=== PATIENT | female | born 1945 | race Caucasian/White ===

== ENCOUNTER 2017-12-23 13:42 | Observation (INO) | payer MEDICARE, MEDICAID, SELFPAY ==
[2017-12-23 13:43] VITALS: BP 183/82; PULSE 76; RESP 14; TEMP 36.6; O2SAT 97; BMI 35.9
--- NOTE | 2017-12-23 14:06 | RAD_ITS ---
STUDY: X-RAY - ACUTE ABDOMINAL SERIES REASON FOR EXAM: Female, 72 years old. NAUSEA/VOMITING X SEVERAL DAYS, ? SBO TECHNIQUE: Single view of the chest. Supine, and erect view(s) of the abdomen were obtained. COMPARISON: CT January 09, 2014 FINDINGS: There is a left midlung field calcified granuloma. The lungs are hyperexpanded. There is mild cardiac megaly. Normal mediastinum and marlo. Normal visualized pulmonary arteries. Normal visualized aortic arch and descending thoracic aorta. There is a non-specific bowel gas pattern. The soft tissue structures of the abdomen and pelvis are unremarkable. There are diffuse degenerative changes of the visualized lumbar spine. RAD/Acute Abdomen Inc Chest IMPRESSION: No demonstrated bowel obstruction. Electronically Signed: Dannielle Batista MD at 15:33 EDT , Service support ,
[2017-12-23] MEDS: 0.9% Normal Saline 1,000 ML 1000 ML IV (14:32)
[2017-12-23] MEDS: Ondansetron 4 MG/2 ML Vial IV (14:32)
[2017-12-23 15:01] LABS: Absolute Neutrophil Count 9.4 X10^3/uL (2.0-7.7); Basophil# 0.03 X10^3/uL; Basophil% 0.2 % (0-1); Hematocrit 36.6 % (37-47); Hemoglobin 13.3 g/dl (12.0-15.0); Lymphocyte % 22.3 % (19-41); Mean Corp Hgb Conc 36.3 g/gl (32-36); Mean Corpuscular Hgb 30.4 pg (27.0-32.0); Mean Corpuscular Volume 83.6 fL (81-99); Mean Platelet Vol. 11.4 fl (6.2-12.0); Monocyte# 0.86 X10^3/uL; Monocyte% 6.4 % (0-10); Neutrophil # 9.44 X10^3/uL (2.7-7.7); Neutrophil % 70.3 % (47-70); POSITIVE COUNT NO; POSITIVE DIFFERENTIAL NO; POSITIVE MORPHOLOGY NO; Platelet Count 214 K/mm3 (150-450); RBC Distribution Width CV 11.8 % (11.6-14.6); RBC Distribution Width SD 35.8 fl (35.1-43.9); Red Blood Count 4.38 M/mm3 (4.2-5.4); White Blood Count 13.4 K/mm3 (4.4-11.0)
[2017-12-23 15:07] LABS: AST(SGOT) 35 U/L (15-37); Alanine Aminotransfer ALT/SGPT 49 U/L (13-56); Albumin, Serum 3.6 g/dL (3.2-5.0); Alkaline Phosphatase 50 U/L (45-117); Anion Gap 9 (5-15); BUN 13 mg/dL (7-18); Bilirubin, Direct 0.14 mg/dL (0.00-0.30); Chloride 86 mmol/L (98-107); Creatinine, Serum 0.93 mg/dL (0.55-1.02); EST Glomerular Filtration Rate 63 mL/min (>60); Est Glom Filt Rate - Afr Amer 76 mL/min (>60); Estimated Creatinine Clearance 45.83 ml/min; Globulin 4.1 g/dL (2.2-4.2); Glucose 128 mg/dL (74-106); Lipase 210 U/L (73-393); Potassium 3.5 mmol/L (3.5-5.1); Protein, Total 7.7 g/dL (6.4-8.2); Sodium Level 121 mmol/L (136-145)
--- NOTE | 2017-12-23 15:43 | ED.DCSUM_ITS ---
- ER Visit Summary Date of Service: 12/23/17 Chief Complaint: Vomiting History of Present Illness: The patient is a [address] Kaur. She reports that she saw Dr. Haddad yesterday and was diagnosed with a urinary tract infection. She was placed on Levaquin. She took a first dose last night and has been vomiting ever since. She reports that she is vomited approximately 10 times. No blood or emesis. She reports that she feels bloated, but denies abdominal pain. She reports her last bowel movements today. She is passing a small amount of flatus. She denies any melena or hematochezia. She does complain of dysuria, frequency, subjective fever and chills. Physical Examination: Vitals: Stable. Afebrile. General: Well-nourished and well-developed. Head: Normocephalic atraumatic. Neck: Supple, no lymphadenopathy. No JVD. Nontender. Cardiovascular: Regular rate and rhythm. No murmurs. Respiratory: No respiratory distress. Clear to auscultation bilaterally. Abdominal: Soft, mild diffuse tenderness to palpation, nondistended, hypoactive bowel sounds. No guarding, rebound, or peritoneal signs. Back: Nontender. Extremities: Nontender, no edema. Skin: Normal color, no rash. Neurologic: Alert and oriented ?3. Cranial nerves II through XII are intact. Normal strength and sensation. Psych: Depressed affect. Test Results: CBC is marked for white count 13.4 hematocrit 36.6. Chem-7 more for sodium 121, chloride of 86, glucose 128. LFTs are normal. Lipase is normal. Three-view of the abdomen shows a nonspecific bowel gas pattern with no obstruction. Emergency Department Course and Treatment: We are still awaiting a urine sample. The patient was treated with morphine and Zofran IV. She has not vomited since being here. Treatment Plan: Patient needs to be admitted for her hyponatremia. She also needs to be evaluated to see if she truly does have a UTI. She will be discussed with the hospitalist for admission. Disposition: Admitted in improved condition. Impression: 1. Hyponatremia. 2. Vomiting. This note was generated with [employer] software. It may contain incorrect words, spelling, and punctuation that were not noted in review of the chart prior to signing ED Disposition - Plan for ED Patient: Chief Complaint: General Illness Referrals: Gurwinder Powell MD [Primary Care Provider] -
--- NOTE | 2017-12-23 15:44 | NURSING ---
DR JARVIS FOR DR SHANE
--- NOTE | 2017-12-23 15:48 | NURSING ---
MED SURG OBS NAUSEA, VOMITING, HYPONATREMIA PAINTSIL
[2017-12-23 15:59] LABS: Bacteria 0 SEEN /hpf (None Seen); Mucous, Urine 0 SEEN /hpf (<or=2+)
[2017-12-23] MEDS: proMETHazine 25 MG/ML Syringe 6.25 MG IV ×2 (16:01→22:56)
[2017-12-23 16:07] LABS: Color, Urine Yellow (Yellow); Glucose, Dipstick Normal (Normal); Ketone-Dipstick 5 mg/dl (Negative); Leukocyte Esterase-Dipstick Negative /ul (Negative); Nitrite-Dipstick Negative (Negative); Occult Blood-Urine 25 /ul (Negative); Protein-Dipstick 30 mg/dl (Negative); Specific Gravity, Urine 1.015 (1.002-1.030); Urine Bilirubin Dipstick Negative (Negative); Urine Clarity Clear (Clear); Urine Urobilinogen Normal (Normal); Urine pH 6.5 (5.0 - 8.0)
[2017-12-23 16:21] VITALS: BP 157/73; PULSE 69; PULSE 70; RESP 17; RESP 18; TEMP 37; O2SAT 97; O2SAT 98
[2017-12-23 16:23] LABS: Amorphous Sediment 1+ URATE; Red Blood Cells-Urine 0-5 SEEN /hpf (0-5); Squamous Epithelial Cells - UA 0-5 SEEN /hpf (5-10); White Blood Cells 0 SEEN /hpf (0-5)
--- NOTE | 2017-12-23 16:38 | PCM.HP.STD ---
<Erick Cuenca - Last Filed: 12/23/17 16:38> Problem List (1) Gastroenteritis Status: Acute (2) Hyponatremia Status: Chronic (3) HTN (hypertension) Status: Chronic (4) Hypothyroidism Status: Chronic (5) Obesity Status: Chronic History of Present Illness Date of Admission: 12/23/17 Chief Complaint: Nausea, vomiting, and diarrhea The patient is a 72 year old F who presented to the ER with intractable nausea and vomiting for four days. She has progressively worsened. She called EMS two days ago who came to check on her and advised her to go to the ER if she became worse. Yesterday she went to see her PCP who told her she had a UTI and she was started on levaquin. She became more nauseous with this however. She has had urinary complaints including increased frequency, dysuria, urgency, hesitancy, and incomplete emptying of her bladder. She also complains of dizziness today. She denies CP, denies LU. She has had diarrhea about 3-4 x per day as well. No fevers or chills. She tried taking zofran PO at home but felt this made her worse as well. In the ER she has an increased WBC count, afebrile, and negative adominal film. [] Past Medical History Past Medical History (Chronic Problems): Chronic Problems Hyponatremia (Chronic) HTN (hypertension) (Chronic) Hypothyroidism (Chronic) Obesity (Chronic) Allergies erythromycin base [Erythromycin Base] Adverse Reaction (Verified 12/23/17 13:45) Vomiting propoxyphene HCl [From Darvon] Adverse Reaction (Verified 12/23/17 13:45) Vomiting sulfamethoxazole [From Bactrim] Adverse Reaction (Verified 12/23/17 13:45) Vomiting tramadol Adverse Reaction (Verified 12/23/17 13:45) Vomiting trimethoprim [From Bactrim] Adverse Reaction (Verified 12/23/17 13:45) Vomiting Home Medications: Ambulatory Orders Medication Instructions Recorded Metoprolol Tartrate [Metoprolol 50 mg PO DAILY 01/09/14 Tartrate] Ranitidine [Zantac] 150 mg PO BID 01/09/14 Albuterol IH (ProAir) [Proair Hfa 2 puff INHALATION Q4H PRN PRN 12/23/17 (SP)Vent Pts] Cetirizine HCl [Zyrtec] 10 mg PO DAILY 12/23/17 Diclofenac [Voltaren] 75 mg PO BIDCM 12/23/17 Fluticasone 0.05% [Flonase Nasal 2 spray NASAL DAILY 12/23/17 [place]] Fluticasone/Salmeterol [Advair 1 puff INHALATION BID 12/23/17 250/50 Mcg Diskus] Hydrochlorothiazide 12.5 mg PO DAILY 12/23/17 Levofloxacin [Levaquin] 500 mg PO DAILY 12/23/17 Levothyroxine [Synthroid] 75 mcg PO DAILY 12/23/17 Losartan Potassium [Cozaar] 50 mg PO DAILY 12/23/17 Ondansetron HCl [Zofran] 4 mg PO Q8H PRN 12/23/17 Oxybutynin [Ditropan] 5 mg PO QHS PRN 12/23/17 Triamcinolone 0.025% Cream 1 applicatio TOPICAL BID 12/23/17 [Kenalog] Surgical History: cholecystectomy Psychiatric History: 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 Denies: Chills, Fever, Weight Change HEENT: Denies: Head Aches, Sinus Congestion, Sinus Drainage Cardiovascular: Denies: Chest Pain, Palpitations Respiratory: Denies: Cough, Shortness of breath at rest, Sputum production Gastrointestinal: Denies: Abdominal Pain, Nausea, Vomiting Genitourinary: Reports: Dysuria, Frequency, Hesitancy, Urgency Musculoskeletal: Denies: Joint Pain, Joint Tenderness Skin: Denies: Rash, Wounds Neurological: Denies: Numbness, Tingling, Focal weakness Psychiatric: Denies: Anxiety, Depression, Homicidal Ideations, Suicidal Ideations Hematologic/ Lymphatic: Denies: Easy Bruising, Easy Bleeding VTE Information - Inpt Only VTE Present on Admission: No VTE Mechan Device Prophylaxis: SCD's VTE Pharm Prophylaxis ordered?: Yes Patient Problems: Active and Suspected Problems Gastroenteritis (Acute) - Physical Exam General: Alert, Oriented x3, Cooperative HEENT: Atraumatic, PERRLA, EOMI, Normocephalic Neck: Supple, No JVD, Negative Carotid Bruits Lungs: Clear to auscultation, Normal air movement Cardiovascular: Regular rate, No murmurs Abdomen: Bowel Sounds Present, Soft, Tender - mild tenderness to palpation diffusely. Extremities: No edema, Capillary Refill Less than 3 Seconds Skin: No rashes, No breakdown Musculoskeletal: No Tenderness to Palpation of Joints or Extremities Neurological: Cranial nerves II-XII grossly intact, - - resting tremor in head Psych/Mental Status: Normal Affect, Appropriate Vital Signs Temp Pulse Resp BP Pulse Ox 98.6 F 70 18 157/73 H 98 12/23/17 16:21 12/23/17 16:21 12/23/17 16:21 12/23/17 16:21 12/23/17 16:21 Oxygen Delivery Method Room Air Laboratory Tests Past 24 Hrs 12/23/17 15:52 Urine Color Yellow Urine Clarity Clear Urine pH 6.5 Ur Specific [place] 1.015 Urine Protein 30 H Urine Glucose (UA) Normal Urine Ketones 5 H Urine Occult Blood 25 H Urine Nitrite Negative Urine Bilirubin Negative Urine Urobilinogen Normal Ur Leukocyte Esterase Negative Urine RBC 0-5 SEEN Urine WBC 0 SEEN Ur Squamous Epith Cells 0-5 SEEN Amorphous Sediment 1+ URATE Urine Bacteria 0 SEEN Urine Mucus 0 SEEN Assessment/Plan Active and Suspected Problems Gastroenteritis (Acute) 1. Acute gastroenteritis - suspect viral. Supportive care, IV fluids, slowly advance diet. Abdominal film negative. Lipase neg. 2. Dysuria/Hesitancy/Increased nocturia/Frequency - Given her negative UA, I do not feel that she has a UTI and will defer abx therapy at this time. Her UA is unremarkable. Her Increased urinary symptoms are suspicious for a different underlying issue such as diabetes. Will monitor glucose with BMP and check A1C. 3. Hyponatremia - hold HCTZ. suspect 2/2 vomiting/diarrhea - suspect hypovolemic. Hydrate with normal saline. Consult nephrology. Urine studies ordered. Check thyroid studies. She has had this on prior labs, but not this severely and I am not sure of the circumstances at that time. 4. Obesity - nutrition consult. 5. HTN - poorly controlled, but she has been vomiting - trend and adjust medications as needed. HCTZ held. 6. Hypothyroid - continue synthroid, check TSH DVT ppx: lovenox This patient was seen by Erick Cuenca PA-C under the supervision of Dr. Phipps <[place] - Last Filed: 12/23/17 17:57> History of Present Illness The patient is a 72 year old F [] Past Medical History Allergies erythromycin base [Erythromycin Base] Adverse Reaction (Verified 12/23/17 13:45) Vomiting propoxyphene HCl [From Darvon] Adverse Reaction (Verified 12/23/17 13:45) Vomiting sulfamethoxazole [From Bactrim] Adverse Reaction (Verified 12/23/17 13:45) Vomiting tramadol Adverse Reaction (Verified 12/23/17 13:45) Vomiting trimethoprim [From Bactrim] Adverse Reaction (Verified 12/23/17 13:45) Vomiting - Physical Exam Vital Signs Temp Pulse Resp BP Pulse Ox 98.6 F 70 18 157/73 H 98 12/23/17 16:21 12/23/17 16:21 12/23/17 16:21 12/23/17 16:21 12/23/17 16:21 Oxygen Delivery Method Room Air Weight: 93.7 kg Body Mass Index (BMI) 35.4 Laboratory Tests Past 24 Hrs 12/23/17 15:52 Urine Color Yellow Urine Clarity Clear Urine pH 6.5 Ur Specific [place] 1.015 Urine Protein 30 H Urine Glucose (UA) Normal Urine Ketones 5 H Urine Occult Blood 25 H Urine Nitrite Negative Urine Bilirubin Negative Urine Urobilinogen Normal Ur Leukocyte Esterase Negative Urine RBC 0-5 SEEN Urine WBC 0 SEEN Ur Squamous Epith Cells 0-5 SEEN Amorphous Sediment 1+ URATE Urine Bacteria 0 SEEN Urine Mucus 0 SEEN Assessment/Plan Patient was seen and examined, has a feeling unwell ongoing for the past 4 days, has nausea and vomiting. History of hypertension on losartan and hydrochlorothiazide. Been feeling very weak associated with dizziness and no chest pain or palpitations or fever or chills. Admits to some dysuria with urgency and urinary frequency as well as nocturia. Seen by his primary care doctor and started on Levaquin. States that she could not continue because she had worsening of her nausea and vomiting. Denies any sick contact. She has had more than 4 bowel movements today Exam shows obese lady, looks very ill and weak, nauseous, pale, able to complete his sentences. Moderate dehydration was seen. Otherwise heart sounds 1 and 2 were present with no murmurs, and she was adequate bilaterally with no added sounds, abdomen was full but soft and non-tender to palpation and no palpable hepatosplenomegaly. Labs and images were reviewed; significant for almost normal UA, slight elevation in glucose, will get HbA1c to rule out diabetes, patient's hyponatremia appears to be acute on chronic, was 10/30/2013, unsure of what patient's sodium has been in between this time, will get records from his primary care doctor. We will also get a stool for enteric panel, [facility] observation Code Visit OBSV E&M: 11218 Initial observation care L3
[2017-12-23 16:47] VITALS: BMI 35.9
--- NOTE | 2017-12-23 16:48 | HP.PCM_ITS ---
<Erick Cuenca - Last Filed: 12/23/17 16:38> Problem List (1) Gastroenteritis Status: Acute (2) Hyponatremia Status: Chronic (3) HTN (hypertension) Status: Chronic (4) Hypothyroidism Status: Chronic (5) Obesity Status: Chronic History of Present Illness Date of Admission: 12/23/17 Chief Complaint: Nausea, vomiting, and diarrhea The patient is a 72 year old F who presented to the ER with intractable nausea and vomiting for four days. She has progressively worsened. She called EMS two days ago who came to check on her and advised her to go to the ER if she became worse. Yesterday she went to see her PCP who told her she had a UTI and she was started on levaquin. She became more nauseous with this however. She has had urinary complaints including increased frequency, dysuria, urgency, hesitancy, and incomplete emptying of her bladder. She also complains of dizziness today. She denies CP, denies LU. She has had diarrhea about 3-4 x per day as well. No fevers or chills. She tried taking zofran PO at home but felt this made her worse as well. In the ER she has an increased WBC count, afebrile, and negative adominal film. [] Past Medical History Past Medical History (Chronic Problems): Chronic Problems Hyponatremia (Chronic) HTN (hypertension) (Chronic) Hypothyroidism (Chronic) Obesity (Chronic) Allergies erythromycin base [Erythromycin Base] Adverse Reaction (Verified 12/23/17 13:45) Vomiting propoxyphene HCl [From Darvon] Adverse Reaction (Verified 12/23/17 13:45) Vomiting sulfamethoxazole [From Bactrim] Adverse Reaction (Verified 12/23/17 13:45) Vomiting tramadol Adverse Reaction (Verified 12/23/17 13:45) Vomiting trimethoprim [From Bactrim] Adverse Reaction (Verified 12/23/17 13:45) Vomiting Home Medications: Ambulatory Orders Medication Instructions Recorded Metoprolol Tartrate [Metoprolol 50 mg PO DAILY 01/09/14 Tartrate] Ranitidine [Zantac] 150 mg PO BID 01/09/14 Albuterol IH (ProAir) [Proair Hfa 2 puff INHALATION Q4H PRN PRN 12/23/17 (SP)Vent Pts] Cetirizine HCl [Zyrtec] 10 mg PO DAILY 12/23/17 Diclofenac [Voltaren] 75 mg PO BIDCM 12/23/17 Fluticasone 0.05% [Flonase Nasal 2 spray NASAL DAILY 12/23/17 [place]] Fluticasone/Salmeterol [Advair 1 puff INHALATION BID 12/23/17 250/50 Mcg Diskus] Hydrochlorothiazide 12.5 mg PO DAILY 12/23/17 Levofloxacin [Levaquin] 500 mg PO DAILY 12/23/17 Levothyroxine [Synthroid] 75 mcg PO DAILY 12/23/17 Losartan Potassium [Cozaar] 50 mg PO DAILY 12/23/17 Ondansetron HCl [Zofran] 4 mg PO Q8H PRN 12/23/17 Oxybutynin [Ditropan] 5 mg PO QHS PRN 12/23/17 Triamcinolone 0.025% Cream 1 applicatio TOPICAL BID 12/23/17 [Kenalog] Surgical History: cholecystectomy Psychiatric History: No pertinent psych hx 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 Denies: Chills, Fever, Weight Change HEENT: Denies: Head Aches, Sinus Congestion, Sinus Drainage Cardiovascular: Denies: Chest Pain, Palpitations Respiratory: Denies: Cough, Shortness of breath at rest, Sputum production Gastrointestinal: Denies: Abdominal Pain, Nausea, Vomiting Genitourinary: Reports: Dysuria, Frequency, Hesitancy, Urgency Musculoskeletal: Denies: Joint Pain, Joint Tenderness Skin: Denies: Rash, Wounds Neurological: Denies: Numbness, Tingling, Focal weakness Psychiatric: Denies: Anxiety, Depression, Homicidal Ideations, Suicidal Ideations Hematologic/ Lymphatic: Denies: Easy Bruising, Easy Bleeding VTE Information - Inpt Only VTE Present on Admission: No VTE Mechan Device Prophylaxis: SCD's VTE Pharm Prophylaxis ordered?: Yes Patient Problems: Active and Suspected Problems Gastroenteritis (Acute) - Physical Exam General: Alert, Oriented x3, Cooperative HEENT: Atraumatic, PERRLA, EOMI, Normocephalic Neck: Supple, No JVD, Negative Carotid Bruits Lungs: Clear to auscultation, Normal air movement Cardiovascular: Regular rate, No murmurs Abdomen: Bowel Sounds Present, Soft, Tender - mild tenderness to palpation diffusely. Extremities: No edema, Capillary Refill Less than 3 Seconds Skin: No rashes, No breakdown Musculoskeletal: No Tenderness to Palpation of Joints or Extremities Neurological: Cranial nerves II-XII grossly intact, - - resting tremor in head Psych/Mental Status: Normal Affect, Appropriate Vital Signs Temp Pulse Resp BP Pulse Ox 98.6 F 70 18 157/73 H 98 12/23/17 16:21 12/23/17 16:21 12/23/17 16:21 12/23/17 16:21 12/23/17 16:21 Oxygen Delivery Method Room Air Laboratory Tests Past 24 Hrs 12/23/17 15:52 Urine Color Yellow Urine Clarity Clear Urine pH 6.5 Ur Specific [place] 1.015 Urine Protein 30 H Urine Glucose (UA) Normal Urine Ketones 5 H Urine Occult Blood 25 H Urine Nitrite Negative Urine Bilirubin Negative Urine Urobilinogen Normal Ur Leukocyte Esterase Negative Urine RBC 0-5 SEEN Urine WBC 0 SEEN Ur Squamous Epith Cells 0-5 SEEN Amorphous Sediment 1+ URATE Urine Bacteria 0 SEEN Urine Mucus 0 SEEN Assessment/Plan Active and Suspected Problems Gastroenteritis (Acute) 1. Acute gastroenteritis - suspect viral. Supportive care, IV fluids, slowly advance diet. Abdominal film negative. Lipase neg. 2. Dysuria/Hesitancy/Increased nocturia/Frequency - Given her negative UA, I do not feel that she has a UTI and will defer abx therapy at this time. Her UA is unremarkable. Her Increased urinary symptoms are suspicious for a different underlying issue such as diabetes. Will monitor glucose with BMP and check A1C. 3. Hyponatremia - hold HCTZ. suspect 2/2 vomiting/diarrhea - suspect hypovolemic. Hydrate with normal saline. Consult nephrology. Urine studies ordered. Check thyroid studies. She has had this on prior labs, but not this severely and I am not sure of the circumstances at that time. 4. Obesity - nutrition consult. 5. HTN - poorly controlled, but she has been vomiting - trend and adjust medications as needed. HCTZ held. 6. Hypothyroid - continue synthroid, check TSH DVT ppx: lovenox This patient was seen by Erick Cuenca PA-C under the supervision of Dr. Phipps <[place] - Last Filed: 12/23/17 17:57> History of Present Illness The patient is a 72 year old F [] Past Medical History Allergies erythromycin base [Erythromycin Base] Adverse Reaction (Verified 12/23/17 13:45) Vomiting propoxyphene HCl [From Darvon] Adverse Reaction (Verified 12/23/17 13:45) Vomiting sulfamethoxazole [From Bactrim] Adverse Reaction (Verified 12/23/17 13:45) Vomiting tramadol Adverse Reaction (Verified 12/23/17 13:45) Vomiting trimethoprim [From Bactrim] Adverse Reaction (Verified 12/23/17 13:45) Vomiting - Physical Exam Vital Signs Temp Pulse Resp BP Pulse Ox 98.6 F 70 18 157/73 H 98 12/23/17 16:21 12/23/17 16:21 12/23/17 16:21 12/23/17 16:21 12/23/17 16:21 Oxygen Delivery Method Room Air Weight: 93.7 kg Body Mass Index (BMI) 35.4 Laboratory Tests Past 24 Hrs 12/23/17 15:52 Urine Color Yellow Urine Clarity Clear Urine pH 6.5 Ur Specific [place] 1.015 Urine Protein 30 H Urine Glucose (UA) Normal Urine Ketones 5 H Urine Occult Blood 25 H Urine Nitrite Negative Urine Bilirubin Negative Urine Urobilinogen Normal Ur Leukocyte Esterase Negative Urine RBC 0-5 SEEN Urine WBC 0 SEEN Ur Squamous Epith Cells 0-5 SEEN Amorphous Sediment 1+ URATE Urine Bacteria 0 SEEN Urine Mucus 0 SEEN Assessment/Plan Patient was seen and examined, has a feeling unwell ongoing for the past 4 days , has nausea and vomiting. History of hypertension on losartan and hydrochlorothiazide. Been feeling very weak associated with dizziness and no chest pain or palpitations or fever or chills. Admits to some dysuria with urgency and urinary frequency as well as nocturia. Seen by his primary care doctor and started on Levaquin. States that she could not continue because she had worsening of her nausea and vomiting. Denies any sick contact. She has had more than 4 bowel movements today Exam shows obese lady, looks very ill and weak, nauseous, pale, able to complete his sentences. Moderate dehydration was seen. Otherwise heart sounds 1 and 2 were present with no murmurs, and she was adequate bilaterally with no added sounds, abdomen was full but soft and non- tender to palpation and no palpable hepatosplenomegaly. Labs and images were reviewed; significant for almost normal UA, slight elevation in glucose, will get HbA1c to rule out diabetes, patient's hyponatremia appears to be acute on chronic, was 10/30/2013, unsure of what patient's sodium has been in between this time, will get records from his primary care doctor. We will also get a stool for enteric panel, [facility] Code Visit OBSV E&M: 11948 Initial observation care L3
[2017-12-23 17:33] VITALS: BMI 35.4
[2017-12-23 17:40] VITALS: BP 139/64; PULSE 64; RESP 16; TEMP 36.6; O2SAT 98
[2017-12-23 18:38] LABS: Urine Sodium 89 mmol/L (Not Establ.)
[2017-12-23 18:56] LABS: Thyroid Stim Hormone (TSH) 4.62 uIU/mL (0.358-3.74)
[2017-12-23 19:03] LABS: Hemoglobin A1c 5.8 % (4.2-6.3)
[2017-12-23] MEDS: Budesonide Respules 0.5 MG/2 ML AMPUL.NEB. INHALATION (20:01)
[2017-12-23] MEDS: Albuterol 2.5 MG/3 ML VIAL.NEB. INHALATION (20:01)
[2017-12-23 20:04] VITALS: PULSE 68; RESP 18
[2017-12-23 22:43] VITALS: BP 134/65; PULSE 67; RESP 16; TEMP 37.1; O2SAT 98
[2017-12-23] MEDS: Oxybutynin 5 MG Tablet PO (22:58)
[2017-12-23] MEDS: Heparin Injection 5,000 UNITS/ML Syringe 5000 UNITS SC (22:58)
[2017-12-24 01:12] LABS: Urine Sodium 21 mmol/L (Not Establ.)
[2017-12-24 01:29] LABS: Osmolality, Urine 110 mOsm/KG
[2017-12-24 04:29] VITALS: BP 139/70; PULSE 67; RESP 16; TEMP 36.8; O2SAT 99
[2017-12-24] MEDS: 0.9% Normal Saline 1,000 ML 100 ML IV (04:37)
[2017-12-24 06:34] LABS: Absolute Lymphocyte Count 3.46 X10^3/ul (0.83-4.51); Absolute Neutrophil Count 4.3 X10^3/uL (2.0-7.7); Basophil# 0.03 X10^3/uL; Basophil% 0.3 % (0-1); Eosinophil# 0.05 X10^3/uL; Eosinophils% 0.6 % (0-5); Hematocrit 36.6 % (37-47); Hemoglobin 13.1 g/dl (12.0-15.0); Lymphocyte # 3.46 X10^3/ul (4.0); Lymphocyte % 38.9 % (19-41); Mean Corp Hgb Conc 35.8 g/gl (32-36); Mean Corpuscular Hgb 30.4 pg (27.0-32.0); Mean Corpuscular Volume 84.9 fL (81-99); Mean Platelet Vol. 11.3 fl (6.2-12.0); Monocyte# 0.96 X10^3/uL; Monocyte% 10.8 % (0-10); Neutrophil # 4.33 X10^3/uL (2.7-7.7); Neutrophil % 48.7 % (47-70); Platelet Count 176 K/mm3 (150-450); RBC Distribution Width CV 12.1 % (11.6-14.6); RBC Distribution Width SD 36.8 fl (35.1-43.9); Red Blood Count 4.31 M/mm3 (4.2-5.4); White Blood Count 8.9 K/mm3 (4.4-11.0)
[2017-12-24 06:36] LABS: POSITIVE COUNT NO; POSITIVE DIFFERENTIAL NO; POSITIVE MORPHOLOGY NO
[2017-12-24] MEDS: Levothyroxine 75 MCG Tablet PO (06:41)
[2017-12-24 06:50] LABS: Anion Gap 10 (5-15); BUN 12 mg/dL (7-18); BUN/Creat Ratio 13.1 RATIO (10-20); Calcium,Total 8.3 mg/dL (8.5-10.1); Chloride 96 mmol/L (98-107); Creatinine, Serum 0.92 mg/dL (0.55-1.02); EST Glomerular Filtration Rate 64 mL/min (>60); Est Glom Filt Rate - Afr Amer 77 mL/min (>60); Estimated Creatinine Clearance 46.33 ml/min; Glucose 92 mg/dL (74-106); Potassium 3.3 mmol/L (3.5-5.1); Sodium Level 131 mmol/L (136-145)
[2017-12-24] MEDS: Albuterol 2.5 MG/3 ML VIAL.NEB. INHALATION ×2 (07:03→14:42)
[2017-12-24 07:04] VITALS: PULSE 80; RESP 20
[2017-12-24] MEDS: Budesonide Respules 0.5 MG/2 ML AMPUL.NEB. INHALATION (07:04)
[2017-12-24 08:45] VITALS: BP 142/89; PULSE 74; RESP 16; TEMP 37.2; O2SAT 97
[2017-12-24 09:03] VITALS: PULSE 74
[2017-12-24] MEDS: Losartan Potassium 50 MG Tablet PO (09:03)
[2017-12-24] MEDS: Famotidine 20 MG Tablet PO (09:03)
[2017-12-24] MEDS: Metoprolol Tartrate 50 MG Tablet PO (09:03)
[2017-12-24] MEDS: Fluticasone 0.05% 1 SPRAY NASAL.SRY 2 SPRAY NASAL (09:03)
[2017-12-24] MEDS: Heparin Injection 5,000 UNITS/ML Syringe 5000 UNITS SC (09:03)
[2017-12-24 10:47] LABS: T4 Free Direct 1.09 ng/dL (0.76-1.46)
--- NOTE | 2017-12-24 12:37 | PCM.CONS.R ---
Consultation - Renal 12/24/17 PCP/ Referring MD: Requesting physician: Mili Phipps Primary care physician: Gurwinder Powell Reason for Consultation:: hyponatremia - History of Present Illness History of Present Illness: The patient is a 72 year old F who presented to the ER with intractable nausea and vomiting for four days. She went to see her PCP who started her on Levaquin for UTI. Her nausea vomiting worsened with the antibiotic therapy which led to her ER visit. She denied any dysuria, frequency, urgency, hesitancy but did have stress urinary incontinence was chronic. She complained of dizziness, generalized weakness associated with her nausea and vomiting. She denied falling at home. She lives in apartment complex by herself and has Meals on Wheels. She denied any diarrhea or abdominal pain. She denied any chest pain or shortness of breath. She is feeling better today. She has a history of chronic tremors. Consulted for low sodium of 121 on admission improved to 131 with normal saline solution. Her hydrochlorothiazide was discontinued. She has been on a thiazide diuretic for many years for hypertension. She had a low sodium in the past at [address] of the abdomen in 2014 showed normal adrenal glands. She has hypothyroidism on hormonal replacement. She denies any history of malignancy. No recent chemistries available from the hospital. Will check [facility] records. Her WBC count is elevated on admission improved today. She denied any cough, fever or chills. - Allergies Allergies: Allergies erythromycin base [Erythromycin Base] Adverse Reaction (Verified 12/23/17 13:45) Vomiting propoxyphene HCl [From Darvon] Adverse Reaction (Verified 12/23/17 13:45) Vomiting sulfamethoxazole [From Bactrim] Adverse Reaction (Verified 12/23/17 13:45) Vomiting tramadol Adverse Reaction (Verified 12/23/17 13:45) Vomiting trimethoprim [From Bactrim] Adverse Reaction (Verified 12/23/17 13:45) Vomiting - Current Medications Current Medications: Current Medications Albuterol Sulfate (Ventolin Aerosols) 2.5 mg INHALATION [facility]6HWA[facility] Last Admin: 12/24/17 07:03 Dose: 2.5 mg Bisacodyl (Dulcolax) 5 mg PO DAILY PRN PRN PRN Reason: Constipation Budesonide (Pulmicort Aerosol) 0.5 mg INHALATION Q12H.[facility] Last Admin: 12/24/17 07:04 Dose: 0.5 mg Famotidine (Pepcid) 20 mg PO DAILY [facility] Last Admin: 12/24/17 09:03 Dose: 20 mg Fluticasone Propionate (Flonase Nasal [place]) 2 spray NASAL DAILY [facility] Last Admin: 12/24/17 09:03 Dose: 2 spray Heparin Sodium (Porcine) () 5,000 units SC BID [facility] Last Admin: 12/24/17 09:03 Dose: 5,000 units Levothyroxine Sodium (Synthroid) 75 mcg PO DAILY@0600 [facility] Last Admin: 12/24/17 06:41 Dose: 75 mcg Losartan Potassium (Cozaar) 50 mg PO DAILY [facility] Last Admin: 12/24/17 09:03 Dose: 50 mg Magnesium Hydroxide (Milk Of Magnesia) 30 ml PO DAILY PRN PRN PRN Reason: Constipation Metoprolol Tartrate (Lopressor (Beta Juanjose)) 50 mg PO DAILY [facility] Last Admin: 12/24/17 09:03 Dose: 50 mg Nutritional Formula (Lactose Free) (Ensure Clear) 120 ml PO 4X/DAY [facility] Last Admin: 12/24/17 09:07 Dose: 120 ml Ondansetron HCl (Zofran Odt) 4 mg PO Q8H PRN PRN Reason: NAUSEA/VOMITING Oxybutynin Chloride (Ditropan) 5 mg PO QHS [facility] Last Admin: 12/23/17 22:58 Dose: 5 mg Promethazine HCl (Phenergan Iv) 6.25 mg IV Q6H PRN PRN PRN Reason: NAUSEA/VOMITING Last Admin: 12/23/17 22:56 Dose: 6.25 mg Psyllium Hydrophilic Mucilloid (Metamucil) 1 packet PO DAILY PRN PRN PRN Reason: CONSTIPATION Sodium Chloride () 5 - 30 ml IV UD PRN PRN Reason: SALINE FLUSH - Past Medical History Past Medical History (Chronic Problems): Chronic Problems Hyponatremia (Chronic) HTN (hypertension) (Chronic) Hypothyroidism (Chronic) Obesity (Chronic) - Past Surgical History Surgical History: cholecystectomy - Social History Smoking Status: Never smoker Alcohol: None Drugs: None - Family History Maternal History Items: No pertinent history Paternal History Items: No pertinent history Review of Systems Constitutional: Reports: Weakness, Fatigue. Denies: Anorexia Eyes: Denies: Blurred vision HEENT: Denies: Head Aches, Sore Throat Cardiovascular: Denies: Chest Pain, Edema Respiratory: Denies: Cough, Shortness of Breath Gastrointestinal: Reports: Diarrhea, Nausea, Vomiting. Denies: Abdominal Pain, Constipation Genitourinary: Reports: Incontinence - Chronic. Denies: Dysuria, Frequency, Hematuria Musculoskeletal: Denies: Back Pain, Muscle pain Skin: Denies: Rash Neurological: Reports: Balance problems, Tremor. Denies: Seizures Psychiatric: Denies: Anxiety, Depression Hematologic/ Lymphatic: Denies: Anemia Patient Problems: Active and Suspected Problems Gastroenteritis (Acute) - Physical Exam General: Alert, Oriented x3, Cooperative, No apparent distress HEENT: PERRLA, EOMI Oral: Moist Mucosa Neck: Supple Lungs: Clear to auscultation Cardiovascular: Regular rate Abdomen: Bowel Sounds Present, Soft, Non Tender, Non-Distended, Obese Extremities: No edema Skin: No rashes Musculoskeletal: No Muscle Wasting Neurological: Cranial nerves II-XII grossly intact, - - Tremor at rest Psych/Mental Status: Normal Affect, Appropriate, Alert and oriented to time, place, person, mood and affect Vital Signs Temp Pulse Resp BP Pulse Ox 99.0 F 74 16 142/89 H 97 12/24/17 08:45 12/24/17 09:03 12/24/17 08:45 12/24/17 08:45 12/24/17 08:45 Oxygen Delivery Method Room Air Weight: 93.7 kg Body Mass Index (BMI) 35.4 Intake and Output for Last 24 Hours 12/22/17 12/23/17 12/24/17 23:59 23:59 23:59 Intake Total 1009 / 1009 Output Total 200 / 200 Balance 809 / 809 Laboratory Tests Past 24 Hrs 12/23/17 12/23/17 12/23/17 15:52 15:52 15:52 WBC RBC Hgb Hct MCV MCH MCHC RDW RDW Differential Plt Count MPV Immature Gran % (Auto) Neut % (Auto) Lymph % (Auto) [place] % (Auto) Eos % (Auto) Baso % (Auto) Absolute Neuts (auto) Absolute Lymphs (auto) Total Counted Sodium Potassium Chloride Carbon Dioxide Anion Gap BUN Creatinine Estim Creat Clear Calc Est GFR (MDRD) Af Amer Est GFR (MDRD) Non-Af BUN/Creatinine Ratio Glucose Calcium Free T4 Urine Color Yellow Urine Clarity Clear Urine pH 6.5 Ur Specific [place] 1.015 Urine Protein 30 H Urine Glucose (UA) Normal Urine Ketones 5 H Urine Occult Blood 25 H Urine Nitrite Negative Urine Bilirubin Negative Urine Urobilinogen Normal Ur Leukocyte Esterase Negative Urine RBC 0-5 SEEN Urine WBC 0 SEEN Ur Squamous Epith Cells 0-5 SEEN Amorphous Sediment 1+ URATE Urine Bacteria 0 SEEN Urine Mucus 0 SEEN Urine Osmolality Ur Random Sodium 89 Urine Creatinine 71.40 12/24/17 12/24/17 12/24/17 00:57 00:57 05:48 WBC 8.9 RBC 4.31 Hgb 13.1 Hct 36.6 L MCV 84.9 MCH 30.4 MCHC 35.8 RDW 12.1 RDW Differential 36.8 Plt Count 176 MPV 11.3 Immature Gran % (Auto) 0.700 Neut % (Auto) 48.7 Lymph % (Auto) 38.9 [place] % (Auto) 10.8 H Eos % (Auto) 0.6 Baso % (Auto) 0.3 Absolute Neuts (auto) 4.3 Absolute Lymphs (auto) 3.46 Total Counted Not Reportable Sodium Potassium Chloride Carbon Dioxide Anion Gap BUN Creatinine Estim Creat Clear Calc Est GFR (MDRD) Af Amer Est GFR (MDRD) Non-Af BUN/Creatinine Ratio Glucose Calcium Free T4 Urine Color Urine Clarity Urine pH Ur Specific [place] Urine Protein Urine Glucose (UA) Urine Ketones Urine Occult Blood Urine Nitrite Urine Bilirubin Urine Urobilinogen Ur Leukocyte Esterase Urine RBC Urine WBC Ur Squamous Epith Cells Amorphous Sediment Urine Bacteria Urine Mucus Urine Osmolality 110 Ur Random Sodium 21 Urine Creatinine 12/24/17 12/24/17 05:48 05:48 WBC RBC Hgb Hct MCV MCH MCHC RDW RDW Differential Plt Count MPV Immature Gran % (Auto) Neut % (Auto) Lymph % (Auto) [place] % (Auto) Eos % (Auto) Baso % (Auto) Absolute Neuts (auto) Absolute Lymphs (auto) Total Counted Sodium 131 L Potassium 3.3 L Chloride 96 L Carbon Dioxide 25.0 Anion Gap 10 BUN 12 Creatinine 0.92 Estim Creat Clear Calc 46.33 Est GFR (MDRD) Af Amer 77 Est GFR (MDRD) Non-Af 64 BUN/Creatinine Ratio 13.1 Glucose 92 Calcium 8.3 L Free T4 1.09 Urine Color Urine Clarity Urine pH Ur Specific [place] Urine Protein Urine Glucose (UA) Urine Ketones Urine Occult Blood Urine Nitrite Urine Bilirubin Urine Urobilinogen Ur Leukocyte Esterase Urine RBC Urine WBC Ur Squamous Epith Cells Amorphous Sediment Urine Bacteria Urine Mucus Urine Osmolality Ur Random Sodium Urine Creatinine Assessment/Plan Active and Suspected Problems Gastroenteritis (Acute) 1. Hyponatremia suspect due to gastroenteritis, nausea vomiting, diuretic therapy. Agree with discontinuing her thiazide diuretic. Sodium improved from 121-131 today with normal saline solution. Will check [facility] records to see if she has been hyponatremic recently. Serum sodium was 127 in 2013 on [facility] records. Would continue to hold her thiazide diuretic on discharge and repeat blood work as outpatient. Urine sodium low at 20 while on thiazide diuretic in after receiving normal saline. 2. Hypertension with stable blood pressure off thiazide diuretic. 3. Gastroenteritis symptoms improved. 4. Leukocytosis with improved WBC 5. history of UTI currently asymptomatic
--- NOTE | 2017-12-24 12:46 | CON.PCM_ITS ---
Consultation - Renal 12/24/17 PCP/ Referring MD: Requesting physician: Mili Phipps Primary care physician: Gurwinder Powell Reason for Consultation:: hyponatremia - History of Present Illness History of Present Illness: The patient is a 72 year old F who presented to the ER with intractable nausea and vomiting for four days. She went to see her PCP who started her on Levaquin for UTI. Her nausea vomiting worsened with the antibiotic therapy which led to her ER visit. She denied any dysuria, frequency, urgency, hesitancy but did have stress urinary incontinence was chronic. She complained of dizziness, generalized weakness associated with her nausea and vomiting. She denied falling at home. She lives in apartment complex by herself and has Meals on Wheels. She denied any diarrhea or abdominal pain. She denied any chest pain or shortness of breath. She is feeling better today. She has a history of chronic tremors. Consulted for low sodium of 121 on admission improved to 131 with normal saline solution. Her hydrochlorothiazide was discontinued. She has been on a thiazide diuretic for many years for hypertension. She had a low sodium in the past at [address] of the abdomen in 2014 showed normal adrenal glands. She has hypothyroidism on hormonal replacement. She denies any history of malignancy. No recent chemistries available from the hospital. Will check [facility] records. Her WBC count is elevated on admission improved today. She denied any cough, fever or chills. - Allergies Allergies: Allergies erythromycin base [Erythromycin Base] Adverse Reaction (Verified 12/23/17 13:45) Vomiting propoxyphene HCl [From Darvon] Adverse Reaction (Verified 12/23/17 13:45) Vomiting sulfamethoxazole [From Bactrim] Adverse Reaction (Verified 12/23/17 13:45) Vomiting tramadol Adverse Reaction (Verified 12/23/17 13:45) Vomiting trimethoprim [From Bactrim] Adverse Reaction (Verified 12/23/17 13:45) Vomiting - Current Medications Current Medications: Current Medications Albuterol Sulfate (Ventolin Aerosols) 2.5 mg INHALATION [facility]6HWA[facility] Last Admin: 12/24/17 07:03 Dose: 2.5 mg Bisacodyl (Dulcolax) 5 mg PO DAILY PRN PRN PRN Reason: Constipation Budesonide (Pulmicort Aerosol) 0.5 mg INHALATION Q12H.RT [facility] Last Admin: 12/24/17 07:04 Dose: 0.5 mg Famotidine (Pepcid) 20 mg PO DAILY [facility] Last Admin: 12/24/17 09:03 Dose: 20 mg Fluticasone Propionate (Flonase Nasal [place]) 2 spray NASAL DAILY [facility] Last Admin: 12/24/17 09:03 Dose: 2 spray Heparin Sodium (Porcine) () 5,000 units SC BID [facility] Last Admin: 12/24/17 09:03 Dose: 5,000 units Levothyroxine Sodium (Synthroid) 75 mcg PO DAILY@0600 [facility] Last Admin: 12/24/17 06:41 Dose: 75 mcg Losartan Potassium (Cozaar) 50 mg PO DAILY [facility] Last Admin: 12/24/17 09:03 Dose: 50 mg Magnesium Hydroxide (Milk Of Magnesia) 30 ml PO DAILY PRN PRN PRN Reason: Constipation Metoprolol Tartrate (Lopressor (Beta Juanjose)) 50 mg PO DAILY [facility] Last Admin: 12/24/17 09:03 Dose: 50 mg Nutritional Formula (Lactose Free) (Ensure Clear) 120 ml PO 4X/DAY [facility] Last Admin: 12/24/17 09:07 Dose: 120 ml Ondansetron HCl (Zofran Odt) 4 mg PO Q8H PRN PRN Reason: NAUSEA/VOMITING Oxybutynin Chloride (Ditropan) 5 mg PO QHS [facility] Last Admin: 12/23/17 22:58 Dose: 5 mg Promethazine HCl (Phenergan Iv) 6.25 mg IV Q6H PRN PRN PRN Reason: NAUSEA/VOMITING Last Admin: 12/23/17 22:56 Dose: 6.25 mg Psyllium Hydrophilic Mucilloid (Metamucil) 1 packet PO DAILY PRN PRN PRN Reason: CONSTIPATION Sodium Chloride () 5 - 30 ml IV UD PRN PRN Reason: SALINE FLUSH - Past Medical History Past Medical History (Chronic Problems): Chronic Problems Hyponatremia (Chronic) HTN (hypertension) (Chronic) Hypothyroidism (Chronic) Obesity (Chronic) - Past Surgical History Surgical History: cholecystectomy - Social History Smoking Status: Never smoker Alcohol: None Drugs: None - Family History Maternal History Items: No pertinent history Paternal History Items: No pertinent history Review of Systems Constitutional: Reports: Weakness, Fatigue. Denies: Anorexia Eyes: Denies: Blurred vision HEENT: Denies: Head Aches, Sore Throat Cardiovascular: Denies: Chest Pain, Edema Respiratory: Denies: Cough, Shortness of Breath Gastrointestinal: Reports: Diarrhea, Nausea, Vomiting. Denies: Abdominal Pain, Constipation Genitourinary: Reports: Incontinence - Chronic. Denies: Dysuria, Frequency, Hematuria Musculoskeletal: Denies: Back Pain, Muscle pain Skin: Denies: Rash Neurological: Reports: Balance problems, Tremor. Denies: Seizures Psychiatric: Denies: Anxiety, Depression Hematologic/ Lymphatic: Denies: Anemia Patient Problems: Active and Suspected Problems Gastroenteritis (Acute) - Physical Exam General: Alert, Oriented x3, Cooperative, No apparent distress HEENT: PERRLA, EOMI Oral: Moist Mucosa Neck: Supple Lungs: Clear to auscultation Cardiovascular: Regular rate Abdomen: Bowel Sounds Present, Soft, Non Tender, Non-Distended, Obese Extremities: No edema Skin: No rashes Musculoskeletal: No Muscle Wasting Neurological: Cranial nerves II-XII grossly intact, - - Tremor at rest Psych/Mental Status: Normal Affect, Appropriate, Alert and oriented to time, place, person, mood and affect Vital Signs Temp Pulse Resp BP Pulse Ox 99.0 F 74 16 142/89 H 97 12/24/17 08:45 12/24/17 09:03 12/24/17 08:45 12/24/17 08:45 12/24/17 08:45 Oxygen Delivery Method Room Air Weight: 93.7 kg Body Mass Index (BMI) 35.4 Intake and Output for Last 24 Hours 12/22/17 12/23/17 12/24/17 23:59 23:59 23:59 Intake Total 1009 / 1009 Output Total 200 / 200 Balance 809 / 809 Laboratory Tests Past 24 Hrs 12/23/17 12/23/17 12/23/17 15:52 15:52 15:52 WBC RBC Hgb Hct MCV MCH MCHC RDW RDW Differential Plt Count MPV Immature Gran % (Auto) Neut % (Auto) Lymph % (Auto) [place] % (Auto) Eos % (Auto) Baso % (Auto) Absolute Neuts (auto) Absolute Lymphs (auto) Total Counted Sodium Potassium Chloride Carbon Dioxide Anion Gap BUN Creatinine Estim Creat Clear Calc Est GFR (MDRD) Af Amer Est GFR (MDRD) Non-Af BUN/Creatinine Ratio Glucose Calcium Free T4 Urine Color Yellow Urine Clarity Clear Urine pH 6.5 Ur Specific [place] 1.015 Urine Protein 30 H Urine Glucose (UA) Normal Urine Ketones 5 H Urine Occult Blood 25 H Urine Nitrite Negative Urine Bilirubin Negative Urine Urobilinogen Normal Ur Leukocyte Esterase Negative Urine RBC 0-5 SEEN Urine WBC 0 SEEN Ur Squamous Epith Cells 0-5 SEEN Amorphous Sediment 1+ URATE Urine Bacteria 0 SEEN Urine Mucus 0 SEEN Urine Osmolality Ur Random Sodium 89 Urine Creatinine 71.40 12/24/17 12/24/17 12/24/17 00:57 00:57 05:48 WBC 8.9 RBC 4.31 Hgb 13.1 Hct 36.6 L MCV 84.9 MCH 30.4 MCHC 35.8 RDW 12.1 RDW Differential 36.8 Plt Count 176 MPV 11.3 Immature Gran % (Auto) 0.700 Neut % (Auto) 48.7 Lymph % (Auto) 38.9 [place] % (Auto) 10.8 H Eos % (Auto) 0.6 Baso % (Auto) 0.3 Absolute Neuts (auto) 4.3 Absolute Lymphs (auto) 3.46 Total Counted Not Reportable Sodium Potassium Chloride Carbon Dioxide Anion Gap BUN Creatinine Estim Creat Clear Calc Est GFR (MDRD) Af Amer Est GFR (MDRD) Non-Af BUN/Creatinine Ratio Glucose Calcium Free T4 Urine Color Urine Clarity Urine pH Ur Specific [place] Urine Protein Urine Glucose (UA) Urine Ketones Urine Occult Blood Urine Nitrite Urine Bilirubin Urine Urobilinogen Ur Leukocyte Esterase Urine RBC Urine WBC Ur Squamous Epith Cells Amorphous Sediment Urine Bacteria Urine Mucus Urine Osmolality 110 Ur Random Sodium 21 Urine Creatinine 12/24/17 12/24/17 05:48 05:48 WBC RBC Hgb Hct MCV MCH MCHC RDW RDW Differential Plt Count MPV Immature Gran % (Auto) Neut % (Auto) Lymph % (Auto) [place] % (Auto) Eos % (Auto) Baso % (Auto) Absolute Neuts (auto) Absolute Lymphs (auto) Total Counted Sodium 131 L Potassium 3.3 L Chloride 96 L Carbon Dioxide 25.0 Anion Gap 10 BUN 12 Creatinine 0.92 Estim Creat Clear Calc 46.33 Est GFR (MDRD) Af Amer 77 Est GFR (MDRD) Non-Af 64 BUN/Creatinine Ratio 13.1 Glucose 92 Calcium 8.3 L Free T4 1.09 Urine Color Urine Clarity Urine pH Ur Specific [place] Urine Protein Urine Glucose (UA) Urine Ketones Urine Occult Blood Urine Nitrite Urine Bilirubin Urine Urobilinogen Ur Leukocyte Esterase Urine RBC Urine WBC Ur Squamous Epith Cells Amorphous Sediment Urine Bacteria Urine Mucus Urine Osmolality Ur Random Sodium Urine Creatinine Assessment/Plan Active and Suspected Problems Gastroenteritis (Acute) 1. Hyponatremia suspect due to gastroenteritis, nausea vomiting, diuretic therapy. Agree with discontinuing her thiazide diuretic. Sodium improved from 121-131 today with normal saline solution. Will check [facility] records to see if she has been hyponatremic recently. Serum sodium was 127 in 2013 on [facility] records. Would continue to hold her thiazide diuretic on discharge and repeat blood work as outpatient. Urine sodium low at 20 while on thiazide diuretic in after receiving normal saline. 2. Hypertension with stable blood pressure off thiazide diuretic. 3. Gastroenteritis symptoms improved. 4. Leukocytosis with improved WBC 5. history of UTI currently asymptomatic
--- NOTE | 2017-12-24 13:15 | PCM.DC ---
- Discharge Diagnoses Current Active Problems: Current Active and Chronic Problems Gastroenteritis (Acute) Hyponatremia (Chronic) HTN (hypertension) (Chronic) Hypothyroidism (Chronic) Obesity (Chronic) Reason(s) for Visit for Discharge Instructions: Nausea, vomiting, diarrhea You will use the following diet at home:: Cardiac Your food should be the consistency of: Regular Your liquids should be the consistency of: Regular/Thin Discharge Activity: Return to Normal Activity Additional Instructions: Note that your hydrochlorothiazide has been stopped. Continue to hydrate yourself. Follow-up with nephrology within 2 weeks Allergies/Adverse Reactions: Allergies erythromycin base [Erythromycin Base] Adverse Reaction (Verified 12/23/17 13:45) Vomiting propoxyphene HCl [From Darvon] Adverse Reaction (Verified 12/23/17 13:45) Vomiting sulfamethoxazole [From Bactrim] Adverse Reaction (Verified 12/23/17 13:45) Vomiting tramadol Adverse Reaction (Verified 12/23/17 13:45) Vomiting trimethoprim [From Bactrim] Adverse Reaction (Verified 12/23/17 13:45) Vomiting Medications to take at Discharge Metoprolol Tartrate 50 mg PO DAILY 01/09/14 Ranitidine [Zantac] 150 mg PO BID 01/09/14 Albuterol IH (ProAir) [Proair Hfa] 2 puff INHALATION Q4H PRN PRN 12/23/17 Cetirizine HCl [Zyrtec] 10 mg PO DAILY 12/23/17 Fluticasone 0.05% [Flonase Nasal [place]] 2 spray NASAL DAILY 12/23/17 Fluticasone/Salmeterol [Advair 250/50 Mcg Diskus] 1 puff INHALATION BID 12/23/17 Levothyroxine [Synthroid] 75 mcg PO DAILY 12/23/17 Losartan Potassium [Cozaar] 50 mg PO DAILY 12/23/17 Ondansetron HCl [Zofran] 4 mg PO Q8H PRN 12/23/17 Oxybutynin [Ditropan] 5 mg PO QHS PRN 12/23/17 Orders to be completed after discharge: Basic Metabolic Profile (BMP) Time Frame: 1 Week, Location: Laboratory Primary Care Physician: Gurwinder Powell MD [Primary Care Provider] - Please follow up with your Primary Care Physician in: within 2 weeks Please Follow Up With: Meghann Batista DO When: with 2 weeks Proposed Discharge Date: 12/24/17
--- NOTE | 2017-12-24 13:21 | DCINST_ITS ---
- Discharge Diagnoses Current Active Problems: Current Active and Chronic Problems Gastroenteritis (Acute) Hyponatremia (Chronic) HTN (hypertension) (Chronic) Hypothyroidism (Chronic) Obesity (Chronic) Reason(s) for Visit for Discharge Instructions: Nausea, vomiting, diarrhea You will use the following diet at home:: Cardiac Your food should be the consistency of: Regular Your liquids should be the consistency of: Regular/Thin Discharge Activity: Return to Normal Activity Additional Instructions: Note that your hydrochlorothiazide has been stopped. Continue to hydrate yourself. Follow-up with nephrology within 2 weeks Allergies/Adverse Reactions: Allergies erythromycin base [Erythromycin Base] Adverse Reaction (Verified 12/23/17 13:45) Vomiting propoxyphene HCl [From Darvon] Adverse Reaction (Verified 12/23/17 13:45) Vomiting sulfamethoxazole [From Bactrim] Adverse Reaction (Verified 12/23/17 13:45) Vomiting tramadol Adverse Reaction (Verified 12/23/17 13:45) Vomiting trimethoprim [From Bactrim] Adverse Reaction (Verified 12/23/17 13:45) Vomiting Medications to take at Discharge Metoprolol Tartrate 50 mg PO DAILY 01/09/14 Ranitidine [Zantac] 150 mg PO BID 01/09/14 Albuterol IH (ProAir) [Proair Hfa] 2 puff INHALATION Q4H PRN PRN 12/23/17 Cetirizine HCl [Zyrtec] 10 mg PO DAILY 12/23/17 Fluticasone 0.05% [Flonase Nasal [place]] 2 spray NASAL DAILY 12/23/17 Fluticasone/Salmeterol [Advair 250/50 Mcg Diskus] 1 puff INHALATION BID Levothyroxine [Synthroid] 75 mcg PO DAILY 12/23/17 Losartan Potassium [Cozaar] 50 mg PO DAILY 12/23/17 Ondansetron HCl [Zofran] 4 mg PO Q8H PRN 12/23/17 Oxybutynin [Ditropan] 5 mg PO QHS PRN 12/23/17 Orders to be completed after discharge: Basic Metabolic Profile (BMP) Time Frame: 1 Week, Location: Laboratory Primary Care Physician: Gurwinder Powell MD [Primary Care Provider] - Please follow up with your Primary Care Physician in: within 2 weeks Please Follow Up With: Meghann Batista DO When: with 2 weeks Proposed Discharge Date: 12/24/17
--- NOTE | 2017-12-24 13:21 | PCM.DC.SUM ---
Discharge Date and Diagnosis - Problem List Patient Problems: Active and Suspected Problems Gastroenteritis (Acute) Date of Admission: 12/23/17 Date of Discharge: 12/24/17 - Primary Discharge Diagnosis Active and Suspected Problems Gastroenteritis (Acute) - Secondary Discharge Diagnosis Chronic Problems Hyponatremia (Chronic) HTN (hypertension) (Chronic) Hypothyroidism (Chronic) Obesity (Chronic) Hospital Course and Treatment Summary of Care Provided: The patient is a 72 year old F [] Discharge Activity: Return to Normal Activity Home Medications: Medications to take at Discharge Metoprolol Tartrate 50 mg PO DAILY 01/09/14 Ranitidine [Zantac] 150 mg PO BID 01/09/14 Albuterol IH (ProAir) [Proair Hfa] 2 puff INHALATION Q4H PRN PRN 12/23/17 Cetirizine HCl [Zyrtec] 10 mg PO DAILY 12/23/17 Fluticasone 0.05% [Flonase Nasal [place]] 2 spray NASAL DAILY 12/23/17 Fluticasone/Salmeterol [Advair 250/50 Mcg Diskus] 1 puff INHALATION BID 12/23/17 Levothyroxine [Synthroid] 75 mcg PO DAILY 12/23/17 Losartan Potassium [Cozaar] 50 mg PO DAILY 12/23/17 Ondansetron HCl [Zofran] 4 mg PO Q8H PRN 12/23/17 Oxybutynin [Ditropan] 5 mg PO QHS PRN 12/23/17 Other Amb Orders: Basic Metabolic Profile (BMP) Time Frame: 1 Week, Location: Laboratory Primary Care Physician: Gurwinder Powell MD [Primary Care Provider] - Please follow up with your Primary Care Physician in: within 2 weeks Please Follow Up With: Meghann Batista DO When: with 2 weeks Medical Necessity - Tobacco Use Smoking Status: Never smoker Tobacco Use: Non-smoker
[2017-12-24 13:26] VITALS: BP 134/61; BP 153/84; BP 154/77; PULSE 68; PULSE 69; PULSE 72
[2017-12-24 14:43] VITALS: PULSE 70; RESP 20
--- NOTE | 2017-12-24 15:23 | PCM.DC.SUM ---
Discharge Date and Diagnosis Date of Admission: 12/23/17 Date of Discharge: 12/24/17 - Primary Discharge Diagnosis Acute viral gastroenteritis Hyponatremia 2/2 thiazide diuretic and gastroenteritis Hypothyroidism Hypokalemia Obesity Hypertension UTI ruled out - Secondary Discharge Diagnosis Chronic Problems Hyponatremia (Chronic) HTN (hypertension) (Chronic) Hypothyroidism (Chronic) Obesity (Chronic) Hospital Course and Treatment Imaging Results: RAD/Acute Abdomen Inc Chest IMPRESSION: No demonstrated bowel obstruction. Meghann Batista-nephrology Operations: None Procedures: None Summary of Care Provided: Physical exam on day of discharge: General: Resting comfortably NAD Psych: A/Ox3 normal affect HEENT: PEARRLA AT NC Neck: Supple NT CV: RRR no m/t/r/g/h Resp: CTA Abd: [id number] Soft NT no guarding or rigidity, obesity. Ext: DP2+= no edema Skin: W/D normal turgor Lymph/Heme: No active bleeding or adenopathy Neuro: CN2-12 intact Hospital course: The patient is a 72 year old F with a history of hypertension, hypothyroidism, obesity who presented to the emergency room with intractable nausea and vomiting for 4 days. She presented to her PCP yesterday who had told her she had a UTI and start her on Levaquin. Nausea and vomiting had become worse after starting Levaquin so she presented to the emergency room. She also had several episodes per day of diarrhea. She was started on Levaquin as she had symptoms of increased urinary frequency, dysuria, urgency, hesitancy, and a feeling of incomplete emptying of her bladder. Her urinalysis however was unremarkable. In the ER she had an abdominal film which was negative for obstruction. She is placed on IV fluids. She is found to be hyponatremic with a sodium of 121. She also had leukocytosis. Nephrology was consulted and she was admitted. She is felt to have acute viral gastroenteritis that she had both nausea and vomiting for 4 days. She is treated with supportive care and IV fluids. Her thiazide diuretic was held for hyponatremia. The following day her sodium had increased significantly. Her leukocytosis resolved. Nephrology felt that the hyponatremia was secondary to her diuretic and the gastroenteritis. Patient's diet was advanced and she had remarkable improvement in her symptoms. She was discharged home in stable condition. She will need to follow-up with her PCP and with Dr. Batista for nephrology. At this time she will not be restarted on hydrochlorothiazide. This patient was seen by Erick Cuenca PA-C under the supervision of Doctor Moise. [] Discharge Diet: No Restrictions Discharge Activity: Return to Normal Activity Home Medications: Medications to take at Discharge Metoprolol Tartrate 50 mg PO DAILY 01/09/14 Ranitidine [Zantac] 150 mg PO BID 01/09/14 Albuterol IH (ProAir) [Proair Hfa] 2 puff INHALATION Q4H PRN PRN 12/23/17 Cetirizine HCl [Zyrtec] 10 mg PO DAILY 12/23/17 Fluticasone 0.05% [Flonase Nasal [place]] 2 spray NASAL DAILY 12/23/17 Fluticasone/Salmeterol [Advair 250/50 Mcg Diskus] 1 puff INHALATION BID 12/23/17 Levothyroxine [Synthroid] 75 mcg PO DAILY 12/23/17 Losartan Potassium [Cozaar] 50 mg PO DAILY 12/23/17 Ondansetron HCl [Zofran] 4 mg PO Q8H PRN 12/23/17 Oxybutynin [Ditropan] 5 mg PO QHS PRN 12/23/17 Primary Care Physician: Gurwinder Powell MD [Primary Care Provider] - Please follow up with your Primary Care Physician in: within 2 weeks Please Follow Up With: Meghann Batista DO When: with 2 weeks Disposition: Home Minutes spent on discharge:: 35 Patient Condition:: Stable Medical Necessity - Tobacco Use Smoking Status: Never smoker Tobacco Use: Non-smoker Meaningful Use Info Meaningful Use Diagnoses (Choose all that apply): None applicable
== END 2017-12-24 15:18 | disposition home or self-care (01) ==
LOC: ED 15:04 → MS3 16:26
PROVIDERS: Internal Medicine Nephrology; Physician Assistant; Admitting Provider Internal Medicine; Emergency Provider Emergency Medicine; Family Provider Family Medicine; PCP Family Medicine; Visit Provider Internal Medicine
DX: A08.4 Viral intestinal infection, unspecified (principal); E87.1 Hypo-osmolality and hyponatremia; T50.2X5A Adverse effect of carbonic-anhydrase inhibitors, benzothiadiazides and other diuretics, initial encounter; E03.9 Hypothyroidism, unspecified; E66.9 Obesity, unspecified; I10 Essential (primary) hypertension; N39.0 Urinary tract infection, site not specified; Z68.35 Body mass index [BMI] 35.0-35.9, adult; Z71.3 Dietary counseling and surveillance; Z79.899 Other long term (current) drug therapy
CPT/HCPCS: 36415; 74022; 80048; 80076; 81001; 82570; 83036; 83690; 83935; 84300; 84439; 84443; 85025; 87506; 94640; 96361; 96372; 96374; 96375; 96376; 97162; 97166; 99218; 99282; J7030; A4216; G0378; J2405

== ENCOUNTER 2018-08-23 10:11 | Emergency (ER) | payer MEDICARE, MEDICAID, SELFPAY ==
[2018-08-23 10:12] VITALS: BP 153/74; PULSE 75; RESP 16; TEMP 36.2; O2SAT 98; BMI 36.0
--- NOTE | 2018-08-23 10:35 | RAD_ITS ---
STUDY: X-RAY - LUMBAR SPINE REASON FOR EXAM: Female, 72 years old. Low back pain. No known injury. TECHNIQUE: 3 view(s) of the lumbar spine were obtained. COMPARISON: None FINDINGS: There is straightening of the normal lumbar lordosis. There is no substantial scoliosis. There is a normal alignment of the vertebrae. There is multilevel endplate spondylosis of the lumbar vertebrae. There is multi-level degenerative disc disease with multi-level disc space narrowing. Facet joint osteoarthritis. There is atherosclerotic calcification of the abdominal aorta without a demonstrated aneurysm. RAD/Lumbar Spine 2 or 3 Views IMPRESSION: Degenerative changes of the spine, as detailed above. Straightening of the normal lumbar lordosis. Electronically Signed: Dony Steve MD at 11:19 EST Tel [phone], Service support ,
--- NOTE | 2018-08-23 10:38 | ED.DCSUM_ITS ---
- ER Visit Summary Date of Service: 08/23/18 Chief Complaint: Back pain History of Present Illness: The patient is a 72 F who presents for back pain since this morning. Patient states she was getting out of bed and when she went to stand she had a sudden twinge in her right lower back. Since then she has had severe back pain that is worse with any kind of movement. She denies any abdominal pain, radiation into the legs, numbness or weakness of the legs, bowel or bladder incontinence or retention, numbness in the groin. Patient tried Advil without any improvement. She has had prior issues with back pain but states this is more severe. History of hypertension, high cholesterol, hypothyroidism and osteoarthritis. Patient states she takes diclofenac for her arthritis. Physical Examination: Vital signs: afebrile, hemodynamically stable, no hypoxia on room air General: well nourished, well developed, in no distress Skin: warm, dry, no rash, no pallor HEENT: normocephalic and atraumatic; PERRL, EOMI, moist mucous membranes Cardiovascular: regular rate and rhythm without murmurs, no peripheral edema, 2+ pulses all distal extremities Respiratory: No increased work of breathing, lungs are clear to auscultation bilaterally, no rales, rhonchi or wheezing Abdominal: Abdomen is soft, nontender with normoactive bowel sounds, no guarding or rebound, no masses Back: No midline tenderness, deformities or step-offs. Diffuse tenderness to palpation of the paraspinal regions in the lumbosacral back, right greater than left. Straight leg raise is negative bilaterally. Patient able to sit up in bed for back exam without much difficulty MSK: Moves all extremities, no deformities, normal strength Neuro: Awake and alert, oriented ?4. No facial droop, sensation and motor function intact and symmetric Test Results: [] Emergency Department Course and Treatment: Patient given IM toradol for pain. XR of lumbar spine performed to rule out spontaneous compression fracture as source of pain. It showed chronic changes but no compression fractures. Patient had no red flag symptoms that would be concerning for spinal cord compression or infection. Patient had great improvement with the Toradol and was able to ambulate more comfortably. Patient was given prescription for 3 days of oral Toradol and advised to not take any other anti-inflammatories concurrently. We discussed that muscle relaxants are unlikely to help and given her age they are contraindicated. Patient was discharged home in improved condition and able to ambulate unassisted. Treatment Plan: [] Disposition: [] Impression: Lumbosacral strain This note was generated with [employer] dictation software. It may contain incorrect words, spelling, and punctuation that were not noted in review of the chart prior to signing ED Disposition - Plan for ED Patient: Disposition: Home or Assisted Living Chief Complaint: Back Instructions: ED Sprain Strain Lumbar Prescriptions: Ketorolac [Toradol] 10 mg PO Q6H PRN PRN #12 tab PRN Reason: back pain Referrals: Gurwinder Powell MD [Primary Care Provider] - 5-7 Days Additional Instructions: You may use the Toradol pills to help with pain. Do not take them for more than 3 days. Do not take them in combination with other anti-inflammatory such as ibuprofen, naproxen, diclofenac, or any other nonsteroidal anti-inflammatory medications. Follow-up with your doctor for another evaluation if you are not having any improvement within 1 week. If it any time you develop difficulty controlling your bowels or bladder, you have weakness in your legs, you have abdominal pain, fever, or any other new concerning symptoms, please return immediately to the emergency department for another evaluation.
[2018-08-23] MEDS: Ketorolac 30 MG/ML Syringe IM (10:45)
[2018-08-23 12:20] VITALS: BP 137/76; PULSE 68; RESP 12; O2SAT 98
--- NOTE | 2018-08-23 12:23 | ED.DEP ---
ED Disposition - Plan for ED Patient: Disposition: Home or Assisted Living Chief Complaint: Back Instructions: ED Sprain Strain Lumbar Prescriptions: Ketorolac [Toradol] 10 mg PO Q6H PRN PRN #12 tab PRN Reason: back pain Referrals: Gurwinder Powell MD [Primary Care Provider] - 5-7 Days Additional Instructions: You may use the Toradol pills to help with pain. Do not take them for more than 3 days. Do not take them in combination with other anti-inflammatory such as ibuprofen, naproxen, diclofenac, or any other nonsteroidal anti-inflammatory medications. Follow-up with your doctor for another evaluation if you are not having any improvement within 1 week. If it any time you develop difficulty controlling your bowels or bladder, you have weakness in your legs, you have abdominal pain, fever, or any other new concerning symptoms, please return immediately to the emergency department for another evaluation.
== END 2018-08-23 12:37 | disposition home or self-care (01) ==
PROVIDERS: Emergency Provider Emergency Medicine; Family Provider Family Medicine; PCP Family Medicine
DX: S39.012A Strain of muscle, fascia and tendon of lower back, initial encounter (principal); I10 Essential (primary) hypertension; E78.00 Pure hypercholesterolemia, unspecified; E03.9 Hypothyroidism, unspecified; M19.90 Unspecified osteoarthritis, unspecified site; X58.XXXA Exposure to other specified factors, initial encounter
CPT/HCPCS: 72100; 99282

== ENCOUNTER → 2018-12-09 09:05 | Outpatient (CLI) | payer MEDICARE, MEDICAID, SELFPAY ==
[2018-12-09 10:37] LABS: Anion Gap 12 (5-15); BUN 27 mg/dL (7-18); BUN/Creat Ratio 24.1 RATIO (10-20); Calcium,Total 8.7 mg/dL (8.5-10.1); Chloride 105 mmol/L (98-107); Creatinine, Serum 1.12 mg/dL (0.55-1.02); EST Glomerular Filtration Rate 50 mL/min (>60); Est Glom Filt Rate - Afr Amer 61 mL/min (>60); Glucose 112 mg/dL (74-106); Potassium 3.6 mmol/L (3.5-5.1); Sodium Level 140 mmol/L (136-145)
== END ==
PROVIDERS: Family Provider Family Medicine; PCP Family Medicine; Referring Provider Family Medicine; Visit Provider Family Medicine
DX: I10 Essential (primary) hypertension (principal)
CPT/HCPCS: 36415; 80048

== ENCOUNTER → 2019-06-16 08:13 | Outpatient (CLI) | payer MEDICARE, MEDICAID, SELFPAY ==
[2019-06-16 10:30] LABS: Anion Gap 4 (5-15); BUN 18 mg/dL (7-18); BUN/Creat Ratio 17.8 RATIO (10-20); Calcium,Total 9.3 mg/dL (8.5-10.1); Chloride 105 mmol/L (98-107); Cholesterol 179 mg/dL (200); Creatinine, Serum 1.01 mg/dL (0.55-1.02); EST Glomerular Filtration Rate 57 mL/min (>60); Est Glom Filt Rate - Afr Amer 69 mL/min (>60); Glucose 115 mg/dL (74-106); High Density Lipoprotein 51 mg/dL; Sodium Level 137 mmol/L (136-145); Thyroid Stim Hormone (TSH) 3.94 uIU/mL (0.358-3.74); Triglycerides 148 mg/dL; Very Low Density Lipoprotein 30 mg/dL (5-40)
== END ==
PROVIDERS: Family Provider Family Medicine; PCP Family Medicine; Referring Provider Family Medicine; Visit Provider Family Medicine
DX: I10 Essential (primary) hypertension (principal); E03.9 Hypothyroidism, unspecified
CPT/HCPCS: 36415; 80048; 80061; 84443

== ENCOUNTER → 2019-12-15 09:30 | Outpatient (CLI) | payer MEDICARE, MEDICAID, SELFPAY ==
[2019-12-15 11:19] LABS: Hemoglobin A1c 5.9 % (4.2-6.3)
[2019-12-15 11:27] LABS: ALB/GLOB Ratio 0.8 RATIO (0.9-2.4); AST(SGOT) 30 U/L (15-37); Alanine Aminotransfer ALT/SGPT 40 U/L (13-56); Albumin, Serum 3.6 g/dL (3.2-5.0); Alkaline Phosphatase 61 U/L (45-117); Anion Gap 7 (5-15); BUN 20 mg/dL (7-18); Chloride 102 mmol/L (98-107); Cholesterol 173 mg/dL (200); Creatinine, Serum 1.11 mg/dL (0.55-1.02); EST Glomerular Filtration Rate 51 mL/min (>60); Est Glom Filt Rate - Afr Amer 61 mL/min (>60); Globulin 4.3 g/dL (2.2-4.2); Glucose 127 mg/dL (74-106); High Density Lipoprotein 50 mg/dL; Potassium 3.8 mmol/L (3.5-5.1); Protein, Total 7.9 g/dL (6.4-8.2); Sodium Level 135 mmol/L (136-145); Thyroid Stim Hormone (TSH) 2.95 uIU/mL (0.358-3.74); Triglycerides 160 mg/dL; Very Low Density Lipoprotein 32 mg/dL (5-40)
== END ==
PROVIDERS: PCP Family Medicine; Referring Provider Family Medicine; Visit Provider Family Medicine
DX: R73.09 Other abnormal glucose (principal); I10 Essential (primary) hypertension
CPT/HCPCS: 36415; 80053; 80061; 83036; 84443

== ENCOUNTER 2020-08-20 19:31 | Emergency (ER) | payer MEDICARE, MEDICAID, SELFPAY ==
[2020-08-20 19:32] VITALS: BP 154/78; PULSE 71; RESP 16; TEMP 36.4; O2SAT 98; BMI 37.3
[2020-08-20 19:36] VITALS: BP 154/78; PULSE 71; RESP 16; TEMP 36.4; O2SAT 98
--- NOTE | 2020-08-20 19:39 | ED.RN ---
OK PER PT TO SHARE MEDICAL INFORMATION AND UPDATES VIA PHONE WITH HER DAUGHTER JOHN PACE. JOHN CELL 3: [phone]
--- NOTE | 2020-08-20 19:47 | EKG12_ITS ---
Test Reason : DIZZINESS Blood Pressure : / mmHG Vent. Rate : 071 BPM Atrial Rate : 071 BPM P-R Int : 262 ms QRS Dur : 072 ms QT Int : 408 ms P-R-T Axes : 040 -01 014 degrees QTc Int : 443 ms Sinus rhythm with 1st degree A-V block Inferior infarct , age undetermined Cannot rule out Anterior infarct , age undetermined Abnormal ECG Confirmed by KELLEN FRASER, NIKOLAS ([id number]), commissioning editor LAUREN VILLANUEVA ([id number]) on 08/26/2020 9:27:46 A M Referred By: PATTY Confirmed By:MARK FOREMAN MD
--- NOTE | 2020-08-20 19:49 | ED.DCSUM_ITS ---
- ER Visit Summary Date of Service: 08/20/20 Chief Complaint: Dizziness History of Present Illness: The patient is a 74 F who presents with dizziness that began today. Patient states she has been feeling lightheaded and tired. Patient states this is generalized. Patient states she also has some leg pain that is worse at night. Patient admits to some cough with some yellow sputum. Patient also admits to subjective chills. Patient admits to some rhinorrhea. Patient states nothing has been helping with her pain or lightheadedness. Patient denies any chest pain or shortness of breath. Patient admits to nausea but denies any vomiting. Physical Examination: Vital signs are stable. Patient is afebrile. Patient is in no acute distress. Oral mucosa is pink and moist. Neck is supple. Trachea is midline. There is no JVD. Heart was regular rate and rhythm. Lungs showed some mild expiratory wheezes. There is good respiratory effort noted. Abdomen is soft. Bowel sounds are normal. There is no tenderness. Cranial nerves II through XII are intact. There are no focal motor or sensory deficits noted. Extremities are intact. There is no calf tenderness or edema. Test Results: EKG showed normal sinus rhythm with a rate of 71. There are no acute ST or T wave changes. This was unchanged compared to previous EKG dated 01/09/2014. Portable chest x-ray was obtained. There is no acute cardiopulmonary process noted. There is no cardiomegaly noted. Bony thorax is normal. This was interpreted by myself. Radiologist also interpreted the x-ray and agrees. CBC was within normal limits. Comprehensive metabolic profile showed a slight elevated glucose of 151. PT with INR and PTT were normal. Troponin was normal. Urinalysis was obtained. There is no evidence of any urinary tract infection. Emergency Department Course and Treatment: Patient was given a DuoNeb aerosol here. Orthostatic vital signs were obtained and were negative. Patient was feeling better on reevaluation. Patient was advised of her findings. A COVID- 19 test was obtained and will be sent out. Patient was instructed to follow-up with her primary care physician for further evaluation and results of her COVID- 19 test. Patient understood and was agreeable with the plan. All questions were answered. Disposition: Discharge home Impression: 1. Dizziness 2. Viral illness 3. Suspected COVID-19 This note was generated with Dragon dictation software. It may contain incorrect words, spelling, and punctuation that were not noted in review of the chart prior to signing ED Disposition - Plan for ED Patient: Disposition: Home or Assisted Living Diagnosis: Dizziness, Viral illness, Suspected COVID-19 virus infection Instructions: ED Dizziness UKO, ED Viral Syndrome Referrals: Gurwinder Powell MD [Primary Care Provider] - 3-5 Days
--- NOTE | 2020-08-20 19:50 | RAD_ITS ---
STUDY: X-RAY CHEST REASON FOR EXAM: Female, 74 years old. Chest pain TECHNIQUE: Frontal view of the chest COMPARISON: 12/23/17 FINDINGS: There is a stable calcified granuloma in the left midlung. The lungs are otherwise clear. There are no pleural effusions. There is no pneumothorax. The heart is stable in size. There is a chronic posttraumatic deformity in the right humeral head. RAD/Chest 1 View (Portable) IMPRESSION: No acute thoracic pathology. Electronically Signed: Rey Armstrong, at 20:20 EST Tel , Service support ,
--- NOTE | 2020-08-20 19:52 | ED.RN ---
ATTEMPTED TO DOCUMENT NOTIFICATION TO PSN AND PULL OLD EKGS IN THIS CHART, UNABLE TO DOCUMENT.
[2020-08-20 19:57] LABS: Absolute Neutrophil Count 5.7 X10^3/uL (2.0-7.7); Basophil% 0.9 % (0-1); Eosinophil# 0.06 X10^3/uL; Eosinophils% 0.5 % (0-5); Hematocrit 39.8 % (37-47); Hemoglobin 13.4 g/dL (12.0-15.0); Lymphocyte % 39.4 % (19-41); Mean Corp Hgb Conc 33.7 g/dL (32-36); Mean Corpuscular Hgb 29.8 pg (27.0-32.0); Mean Corpuscular Volume 88.4 fL (81-99); Mean Platelet Vol. 10.6 fl (6.2-12.0); Monocyte# 0.49 X10^3/uL; Monocyte% 4.5 % (0-10); NRBC Flagged by Analyzer 0 % (0-5); Neutrophil # 5.69 X10^3/uL (2.7-7.7); Neutrophil % 52.2 % (47-70); Platelet Count 194 K/mm3 (150-450); RBC Distribution Width CV 12.8 % (11.6-14.6); RBC Distribution Width SD 41.2 fl (35.1-43.9); White Blood Count 10.9 K/mm3 (4.4-11.0)
[2020-08-20 20:09] VITALS: PULSE 74; RESP 14
[2020-08-20] MEDS: Ipratropium/Albuterol Sulfate 3 ML AMPUL.NEB INHALATION (20:09)
[2020-08-20 20:13] LABS: ALB/GLOB Ratio 0.8 RATIO (0.9-2.4); AST(SGOT) 23 U/L (15-37); Alanine Aminotransfer ALT/SGPT 40 U/L (13-56); Albumin, Serum 3.8 g/dL (3.2-5.0); Alkaline Phosphatase 54 U/L (45-117); Anion Gap 6 (5-15); BUN 17 mg/dL (7-18); BUN/Creat Ratio 17.7 RATIO (10-20); Calcium,Total 9.4 mg/dL (8.5-10.1); Chloride 98 mmol/L (98-107); Creatinine, Serum 0.96 mg/dL (0.55-1.02); EST Glomerular Filtration Rate 60 mL/min (>60); Est Glom Filt Rate - Afr Amer 73 mL/min (>60); Estimated Creatinine Clearance 43.05 ml/min; Globulin 4.6 g/dL (2.2-4.2); Glucose 151 mg/dL (74-106); Potassium 4.2 mmol/L (3.5-5.1); Protein, Total 8.4 g/dL (6.4-8.2); Sodium Level 132 mmol/L (136-145)
[2020-08-20 20:25] LABS: Prothrombin Time (Protime)PT. 12.8 SECONDS (11.7-14.9)
[2020-08-20 20:26] LABS: Partial Thromboplast Time 23.7 Seconds (24.1-36.2)
[2020-08-20 20:50] VITALS: BP 160/75; BP 162/81; BP 174/97; PULSE 75; PULSE 78; PULSE 81
--- NOTE | 2020-08-20 20:56 | ED.RN ---
atte,pted to obtain urine sample. Pt unable at this time.
[2020-08-20 22:46] LABS: Bacteria 0 SEEN /hpf (None Seen); Mucous, Urine 0 SEEN /hpf (<or=2+); Red Blood Cells-Urine 0 SEEN /hpf (0-5); White Blood Cells 0 SEEN /hpf (0-5)
[2020-08-20 22:51] LABS: Color, Urine Yellow (Yellow); Glucose, Dipstick Normal (Normal); Ketone-Dipstick Negative (Negative); Leukocyte Esterase-Dipstick Negative /ul (Negative); Nitrite-Dipstick Negative (Negative); Occult Blood-Urine Negative /ul (Negative); Protein-Dipstick 15 mg/dl (Negative); Specific Gravity, Urine 1.005 (1.002-1.030); Urine Bilirubin Dipstick Negative (Negative); Urine Clarity Sl. Cloudy (Clear); Urine Urobilinogen Normal (Normal); Urine pH 6.5 (5.0 - 8.0)
[2020-08-20 23:00] LABS: Amorphous Sediment 1+ URATE; Squamous Epithelial Cells - UA 0-5 SEEN /hpf (5-10)
[2020-08-20 23:41] VITALS: BP 131/61; PULSE 78; RESP 20
== END 2020-08-20 23:43 | disposition home or self-care (01) ==
PROVIDERS: Emergency Provider Emergency Medicine; PCP Family Medicine
DX: R42 Dizziness and giddiness (principal); B34.9 Viral infection, unspecified; Z20.828 Contact with and (suspected) exposure to other viral communicable diseases; R11.0 Nausea; R05 Cough; M79.606 Pain in leg, unspecified; J34.89 Other specified disorders of nose and nasal sinuses
CPT/HCPCS: 71045; 80053; 81001; 84484; 85025; 85610; 85730; 87635; 93005; 94640; 99285; J7040; A4216; U0003

== ENCOUNTER → 2020-10-24 09:14 | Outpatient (CLI) | payer MEDICARE, MEDICAID, SELFPAY ==
[2020-10-24 10:20] LABS: Hemoglobin A1c 5.7 % (3.8-5.6)
[2020-10-24 10:41] LABS: ALB/GLOB Ratio 0.9 RATIO (0.9-2.4); AST(SGOT) 24 U/L (15-37); Alanine Aminotransfer ALT/SGPT 37 U/L (13-56); Albumin, Serum 3.6 g/dL (3.2-5.0); Alkaline Phosphatase 59 U/L (45-117); Anion Gap 7 (5-15); BUN 23 mg/dL (7-18); BUN/Creat Ratio 22.1 RATIO (10-20); Calcium,Total 9.3 mg/dL (8.5-10.1); Chloride 102 mmol/L (98-107); Cholesterol 181 mg/dL (200); Creatinine, Serum 1.04 mg/dL (0.55-1.02); EST Glomerular Filtration Rate 55 mL/min (>60); Est Glom Filt Rate - Afr Amer 66 mL/min (>60); Globulin 4.2 g/dL (2.2-4.2); Glucose 100 mg/dL (74-106); High Density Lipoprotein 55 mg/dL; Potassium 4.1 mmol/L (3.5-5.1); Protein, Total 7.8 g/dL (6.4-8.2); Sodium Level 135 mmol/L (136-145); Thyroid Stim Hormone (TSH) 2.22 uIU/mL (0.358-3.74); Triglycerides 142 mg/dL; Very Low Density Lipoprotein 28 mg/dL (5-40)
== END ==
PROVIDERS: PCP Family Medicine; Referring Provider Family Medicine; Visit Provider Family Medicine
DX: E03.9 Hypothyroidism, unspecified (principal); I10 Essential (primary) hypertension; R73.09 Other abnormal glucose
CPT/HCPCS: 36415; 80053; 80061; 83036; 84443